=== PATIENT | male | born 2000 | race Caucasian/White ===

== ENCOUNTER 2020-07-31 16:27 | Emergency (ER) | payer OTHER, SELFPAY ==
--- NOTE | 2020-07-31 | XR_ITS ---
EXAMINATION: XR SHOULDER, LEFT CLINICAL INFORMATION: Question shoulder dislocation COMPARISON: Radiographs of the left shoulder 06/16/2020 TECHNIQUE: AP external rotation, Grashey, scapular Y, and axillary views of the left shoulder. FINDINGS: There is anterior and inferior dislocation of the left humeral head in relation to the glenoid. No acute fracture is visualized. The acromioclavicular joint is preserved. The visualized portion of the lungs is clear. IMPRESSION: Anterior and inferior left glenohumeral dislocation. No discrete fracture is visualized.
[2020-07-31 16:35] VITALS: BP 119/83; PULSE 91; RESP 16; TEMP 37; O2SAT 99; BMI 18.8
[2020-07-31] MEDS: Ketorolac Tromethamine 15 MG/ML VIAL IVPUSH (17:12)
[2020-07-31] MEDS: Cyclobenzaprine HCl 5 MG TABLET PO (17:12)
[2020-07-31 17:13] VITALS: RESP 16
[2020-07-31] MEDS: Morphine Sulfate 4 MG/ML CARTRIDGE IVPUSH (17:13)
[2020-07-31 17:36] VITALS: BP 128/76; PULSE 64; RESP 16; O2SAT 99
--- NOTE | 2020-07-31 17:54 | XR_ITS ---
EXAMINATION: XR SHOULDER, LEFT CLINICAL INFORMATION: Postreduction. COMPARISON: Same day left shoulder radiographs. TECHNIQUE: AP and Y views of the left shoulder. FINDINGS: There has been interval reduction of the previously identified left shoulder dislocation. There is a sac deformity. The left AC joint is intact. IMPRESSION: Interval reduction of previously dislocated left shoulder. Fell sacs deformity.
--- NOTE | 2020-07-31 17:58 | PC.NURSE ---
DOMINICK PAC AT THE BEDSIDE TO REDUCE RECURRING ANT DISLOCATION OF PT WITH THIS RN APPEARS TO BE RELOCATED AFTER 2ND ATTEMPT PT TOLERATED PROCEDURE SLING WAS PLACED FOR IMMOBILIZATION RADIOLOGY AT BEDSIDE FOR POST REDUCTION XRAY
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
--- NOTE | 2020-07-31 19:07 | PC.NURSE ---
REPORT RECEIVED. PATIENT LAST SEEN BY PREVIOUS NURSE AT 1835. NO LONGER PRESENT AT THIS TIME.
== END 2020-07-31 19:13 | disposition home or self-care (01) ==
PROVIDERS: Emergency Provider Emergency Medicine
DX: S43.085A Other dislocation of left shoulder joint, initial encounter (principal); Y04.2XXA Assault by strike against or bumped into by another person, initial encounter; Y93.9 Activity, unspecified; Y92.9 Unspecified place or not applicable; Y99.9 Unspecified external cause status
CPT/HCPCS: 23650; 73030; 96374; 96375; 96376; 99284; J1885; J2270